=== PATIENT | female | born 1945 | race Caucasian/White ===

== ENCOUNTER 2022-01-12 11:27 | Emergency (ER) | payer BC, MEDICARE ==
[~2022-01-12] VITALS: Ht 160 cm; Wt 77.3 kg
[~2022-01-12 11:27] MED LIST: ACET-2319 PO; ASPI-1264 PO; ATOR20TA PO; HYDR-4383 PO; HYDR25TA4 PO; MULT-342 PO; NAPR-56 PO; ZOLP5TAB8 PO
[2022-01-12 11:36] VITALS: BP 128/63
[2022-01-12 12:10] LABS: BASOPHILS % (AUTO) 0.4 % (0-1); EOSINOPHILS % (AUTO) 0.4 % (0-6); HEMATOCRIT 42.2 % (35.0-45.0); HEMOGLOBIN 14.1 g/dl (12.0-16.0); LYMPHOCYTES # (AUTO) 1.3 X10'3 (1.1-4.8); LYMPHOCYTES % (AUTO) 14.3 % (21-51); MEAN CORPUSCULAR HEMOGLOBIN 30.6 PG (27.0-31.0); MEAN CORPUSCULAR HGB CONC 33.4 g/dL (33.0-36.5); MEAN CORPUSCULAR VOLUME 91.5 FL (78-98); MEAN PLATELET VOLUME 9.1 FL (7.4-10.4); MONOCYTES # (AUTO) 0.9 X10'3 (0-0.9); MONOCYTES % (AUTO) 10.3 % (2-12); NEUTROPHILS # (AUTO) 6.6 X10'3 (1.8-7.7); NEUTROPHILS % (AUTO) 74.6 % (42-75); PLATELET COUNT 256 X10'3 (140-440); RED BLOOD COUNT 4.61 X10'6 (4.20-5.60); RED CELL DISTRIBUTION WIDTH 16.5 % (11.5-14.5); WHITE BLOOD COUNT 8.9 X10'3 (4.5-11.0)
[2022-01-12 12:25] LABS: ALANINE AMINOTRANSFERASE 13 U/L (12-78); ALBUMIN 3.7 G/DL (3.4-5.0); ALKALINE PHOSPHATASE 70 IU/L (46-116); ANION GAP 14 (8-16); ASPARTATE AMINO TRANSFERASE 23 U/L (10-37); BILIRUBIN,TOTAL 0.4 MG/DL (0.1-1.0); BLOOD UREA NITROGEN 26 MG/DL (7-18); BUN/CREATININE RATIO 11.1 (6.6-38.0); CALCIUM 9.1 MG/DL (8.5-10.1); CHLORIDE 96 MMOL/L (99-107); CREATININE 2.34 MG/DL (0.40-0.90); GLUCOSE 134 MG/DL (70-104); SODIUM 134 MMOL/L (135-145); TOTAL CARBON DIOXIDE 23.8 MMOL/L (24-32); TOTAL PROTEIN 7.5 G/DL (6.4-8.2); eGFR 20 ML/MIN
[2022-01-12 12:32] LABS: POTASSIUM 2.7 MMOL/L (3.5-5.1)
--- NOTE | 2022-01-12 16:37 | NUR ---
CALLED FOR ROOM, NOT IN LOBBY
== END 2022-01-12 19:01 | disposition left against medical advice (07) ==
LOC: ER 11:27
DX: R53.83 Other fatigue (principal); Z53.21 Procedure and treatment not carried out due to patient leaving prior to being seen by health care provider; R51.9 Headache, unspecified
CPT/HCPCS: 36415; 70450; 72125; 80053; 85025

== ENCOUNTER 2024-04-13 08:21 | Outpatient (CLI) | payer MEDICARE, OTHER | END 2024-04-13 23:59 | disposition home or self-care (01) | LOC: MRI02 08:21 | PROVIDERS: ATTEND Physician Assistant Medical | DX: M47.27 Other spondylosis with radiculopathy, lumbosacral region (principal); M51.17 Intervertebral disc disorders with radiculopathy, lumbosacral region; M48.07 Spinal stenosis, lumbosacral region; M70.61 Trochanteric bursitis, right hip; M43.17 Spondylolisthesis, lumbosacral region; Y93.89 Activity, other specified | CPT/HCPCS: 72148 ==

== ENCOUNTER 2025-04-04 10:27 | Emergency (ER) | payer MEDICARE, OTHER ==
[~2025-04-04] VITALS: Ht 160 cm; Wt 81.9 kg
[~2025-04-04 10:27] MED LIST changes: +ZOLP5TAB19 PO; -ZOLP5TAB8 PO
[2025-04-04 10:31] VITALS: TEMP 97.8
--- NOTE | 2025-04-04 11:00 | RADIOLOGY REPORT ---
CHEST RADIOGRAPH Indication: aloc Technique: Single frontal view of the chest was obtained Comparison: None FINDINGS: Lines and Tubes: None Lungs: Left lower lobe atelectasis although early stages of pneumonia not entirely excluded.. Pleura: No effusion. No pneumothorax. Cardiomediastinal contours: Unremarkable Bones: No acute osseous abnormality. IMPRESSION: 1. Left lower lobe atelectasis although early stages of pneumonia not entirely excluded.
--- NOTE | 2025-04-04 11:09 | RADIOLOGY REPORT ---
Indication: aloc Comparison: CT HEAD on DOS: 01/12/22 Technique: Utilizing a multislice CT scanner, a CT scan of the brain was performed without intravenous contrast. Coronal and sagittal reformatted images. All CT scans at this facility use dose modulation, iterative reconstruction, and/or weight based dosing when appropriate to reduce radiation dose to as low as reasonably achievable. Findings: There is no acute infarct, intracranial hemorrhage, or mass effect. There is no hydrocephalus or significant midline shift. There is mild chronic microvascular ischemic changes and mild parenchymal volume loss. No acute, depressed calvarial fractures. No large scalp hematomas. Impression: 1. No acute intracranial abnormality.
[2025-04-04 11:23] LABS: MEAN PLATELET VOLUME 8.2 FL (7.4-10.4); RED CELL DISTRIBUTION WIDTH 15.3 % (11.5-14.5)
--- NOTE | 2025-04-04 11:24 | ELECTROCARDIOGRAPH REPORT ---
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 Murphy Keen Measurements Intervals [place] Rate: 78 P: 55 ID: [id number] QRS: 5 QRSD: 93 T: 52 QT: 385 QTc: 439 Interpretive Statements Sinus rhythm Electronically Signed On 04-04-2025 19:05:[address] Murphy Keen Please click the below link to view image of tracing.
[2025-04-04 11:39] LABS: LACTIC SEPSIS 0.7 MMOL/L (0.4-2.0)
[2025-04-04] MEDS: LIDOcaine 1% W/epiNEPHrine 1:100,000 20ml vial SQ ONE (11:46)
[2025-04-04 11:50] LABS: CREATININE 0.88 MG/DL (0.40-0.90); TOTAL CARBON DIOXIDE 27.1 MMOL/L (24-32); eCRCL 43 ML/MIN; eGFR 62 ML/MIN
[2025-04-04] MEDS: metoclopramide 5 mg/ml inj IV ONE (12:43)
[2025-04-04] MEDS: ketorolac trometh 30MG/ML vial 30 MG/ML VIAL IV ONE (12:44)
[2025-04-04] MEDS: normal saline 1000ml 1,000 ML IVB ONE (14:15)
--- NOTE | 2025-04-04 14:19 | Physician Documentation ---
History of Present Illness ~ Chief Complaint: ALOC Stated Complaint: CONFUSION SINCE YESTERDAY MORNING Time Seen by MD: 10:44 OK to notify your PCP?: Yes Source: family Mode of Arrival: POV HPI 80-year-old female patient with a history of hypertension and dyslipidemia came to the emergency room because bad headache all day since she woke up this morning. It is in the frontal area and also sinus area. Is aching and pounding. There was no nausea vomiting or visual changes. There was no neck pain. The patient denies abdominal pain chest pain and shortness of breath. Trauma or injuries. No problems with balancing and no problems with urination or bowel movements. Medication Reconciliation Allergies: Coded Allergies: No Known Allergies (Unverified , 04/04/25) Scheduled Acetaminophen/Dp-Hydram Hcl (Tylenol Pm), 2 TAB PO HS, (Reported) Aspirin* (Aspirin*), 325 MG PO DAILY@0830 Atorvastatin Calcium* (Lipitor*), 1 TABLET PO HS, (Reported) Hydrocodone/Acetaminophen ([place] 5-325 Tablet), 1 TAB PO Q12H PRN, (Reported) Multivitamins (Multi-Day Vitamin), 1 TAB PO DAILY, (Reported) Naproxen (Naproxen), 1 TAB PO Q12H, (Reported) Zolpidem Tartrate* (Ambien*), 0.3 TAB PO HS, (Reported) Scheduled PRN Hydrochlorothiazide (Hydrochlorothiazide), 0.5 TAB PO DAILY PRN for Per Protocol, (Reported) Review of Systems ROS As stated above in the HPI, otherwise all systems are reviewed and negative. Physical Exam Vital Signs: Temperature: 97.8, Source: Oral, Heart Rate: 90, Respiratory Rate: 16, BP: 200/92, Pulse Oximetry: 97, Weight: 81.900 Physical Exam Reviewed vital signs and they are well within normal range. Initial blood pressure was elevated but later is back to normal. Const: Not in acute cardiopulmonary distress but discomfort from headache Head: Atraumatic Eyes: Normal Conjunctiva ENT: Normal External Ears, Nose and Mouth. Moist mucous membranes Neck: Full range of motion. No meningismus Resp: Clear to auscultation bilaterally. Normal work of breathing Cardio: Regular rate and rhythm, no murmurs. Skin well perfused Abd: Soft, non-tender, non-distended. Normal bowel sounds. No rebound or guarding Skin: No petechiae or rashes. Warm and dry Back: No midline or flank tenderness Ext: No cyanosis, or edema Neuro: Awake and alert, GCS 15/15 and no focal neurological deficit. Psych: Normal Mood and Affect Progress Results/Orders Results/Orders Orders - MING DOTSON MD Electrocardiogram (04/04/25 10:44) Urinalysis, Cult If Indicated (04/04/25 10:44) Chest,Single View (04/04/25 10:44) Ct Head (04/04/25 10:53) Culture Blood (04/04/25 10:44) Saline Lock (04/04/25 10:44) Completed Orders - MING DOTSON MD Electrocardiogram (04/04/25 10:44) Cbc/Diff (04/04/25 10:44) Chest,Single View (04/04/25 10:44) Ct Head (04/04/25 10:53) Ammonia (04/04/25 10:44) BMP (04/04/25 10:44) Hs Troponin I W Calculations (04/04/25 10:44) Lacticsepsis (04/04/25 10:44) Liver Panel (04/04/25 10:44) Lidocaine 1% W/Epi 1:100,000 (Xylocaine (04/04/25 10:50) Diphenhydramine Inj (Benadryl Inj.) (04/04/25 12:20) Metoclopramide Inj (Reglan Inj) (04/04/25 12:20) Ketorolac Trometh 30mg/Ml Vial (Toradol (04/04/25 12:20) Normal Saline 1000ml (0.9% Sodium Chlori (04/04/25 13:50) Vital Signs 04/04/25 04/04/25 04/04/25 04/04/25 10:31 11:08 13:46 16:23 Temp 97.8 Pulse 90 81 Resp 18 18 16 16 B/P (MAP) 200/92 131/78 Pulse Ox 97 97 Laboratory Tests Test 04/04/25 11:05 White Blood Count 6.8 Red Blood Count 4.43 Hemoglobin 13.6 Hematocrit 40.6 Mean Corpuscular Volume 91.7 Mean Corpuscular Hemoglobin 30.6 Mean Corpuscular Hemoglobin Concent 33.4 Red Cell Distribution Width 15.3 H Platelet Count 221 Mean Platelet Volume 8.2 Neutrophils (%) (Auto) 66.4 Lymphocytes (%) (Auto) 23.1 Monocytes (%) (Auto) 8.6 Eosinophils (%) (Auto) 1.3 Basophils (%) (Auto) 0.6 Neutrophils # (Auto) 4.5 Lymphocytes # (Auto) 1.6 Monocytes # (Auto) 0.6 Eosinophils # (Auto) 0.1 Basophils # (Auto) 0.0 CBC Comment Sodium Level 146 H Potassium Level 3.4 L Chloride Level 109 H Carbon Dioxide Level 27.1 Anion Gap 10 Blood Urea Nitrogen 15 Creatinine 0.88 Estimated GFR/1.73 m2 62 BUN/Creatinine Ratio 17.0 Glucose Level 115 H Lactic Acid Level 0.7 Calcium Level 9.0 Total Bilirubin 0.6 Direct Bilirubin 0.1 Aspartate Amino Transf (AST/SGOT) 15 Alanine Aminotransferase (ALT/SGPT) 18 Alkaline Phosphatase 76 Ammonia < 10 L Troponin I High Sensitivity 5 Total Protein 7.7 Albumin 3.8 Globulin 3.9 Albumin/Globulin Ratio 1.0 L Chemistry Comments Microbiology Date/Time Source Procedure Growth Status 04/04/25 11:10 Blood Arm Left Blood Culture - Preliminary NO GROWTH AFTER 3 DAYS Resulted Medical Decision Making Additional information obtaine: old records Findings During the physical examination, the findings suggestive of acute life-threat ening condition such as JVD, tracheal deviation, acidotic breathing, noisy stridorous breath sounds, pulses paradoxus, muffled heart sounds, unequal breath sounds, abdominal rigidity and rebound tenderness, focal neurological deficits, cool clammy skin, severe hypotension, severe tachycardia or bradycardia are absent. Physical examination is totally unremarkable. CBC CMP and cardiac enzymes are well within normal range. CT of the head does not reveal any ICH, S 0 L, midline shift. Patient was given IV Reglan, Benadryl, and Toradol and headache went away. Patient does not have identifiable emergent medical condition that warrants inpatient medical care at this time. The patient is deemed safe for discharge with outpatient follow up. DISCLAIMER Inadvertent spelling and grammatical errors,inadvertent surg rn errors,syntax errors, grammatical errors, and spelling errors are likely due to EMR/dictation software use and do not reflect on the overall quality of patient care. Note that the electronic time recorded on this note does not necessarily reflect the actual time of the patient encounter. Differential Dx:Considerations: Include: ELISE-Cluster, ELISE-Migraine, ELISE-Muscular contraction, Carbon monoxide toxicity, Hemorrhage-Intracerebral, Hemorrhage- Subdural, Mass lesion, Post-traumtic, Pseudotumor cerebri, Sinusitis Departure Disposition: HOME / SELF CARE / HOMELESS Impression: Primary Impression: Frontal headache Condition: Stable Discharge Instructions: General Headache Without Cause, [id number] Referrals: NO PRIMARY CARE PROVIDER (PCP) Signature Scribe Signature: x Attestation: MING Bradley MD Apr 04, 2025 14:19
[2025-04-04 16:23] VITALS: BP 131/78; PULSE 81; RESP 16; O2SAT 97
== END 2025-04-05 10:40 | disposition home or self-care (01) ==
LOC: ER 10:27
DX: R51.9 Headache, unspecified (principal); I10 Essential (primary) hypertension; E78.5 Hyperlipidemia, unspecified; Z79.899 Other long term (current) drug therapy; Z79.82 Long term (current) use of aspirin
CPT/HCPCS: 36415; 70450; 71045; 80048; 80076; 82140; 83605; 84484; 85025; 87040; 93005; 96361; 96372; 96374; 96375; 99285; J1200; J1885; J2765; J3490; J7030